=== PATIENT | male | born 1960 | race Caucasian/White ===

== ENCOUNTER → 2020-12-10 | Outpatient (CLI) | payer BC, OTHER | LOC: KOH-I 13:22 | DX: M79.641 Pain in right hand (principal); M79.5 Residual foreign body in soft tissue | CPT/HCPCS: 73130 ==

== ENCOUNTER → 2021-07-05 | Outpatient (CLI) | payer BC | LOC: KOH-I 10:58 | DX: F17.210 Nicotine dependence, cigarettes, uncomplicated (principal) | CPT/HCPCS: 71271 ==